=== PATIENT | male | born 1985 | race Caucasian/White ===

== ENCOUNTER 2017-05-18 16:29 | Emergency (ER) | payer SELFPAY ==
[~2017-05-18] VITALS: Ht 180.3 cm; Wt 66.7 kg
[~2017-05-18 16:29] MED LIST: CORTISPORIN-TC10 M1 LEFT EAR; NO HOME MEDS; RISPERDAL2 MG PO
[2017-05-18 17:52] LABS: APPEARANCE CLEAR ((CLEAR)); BILIRUBIN NEGATIVE; BLOOD NEGATIVE; COLOR STRAW ((YELLOW)); GLUCOSE (STRIP) NEGATIVE; KETONES NEGATIVE; LEUKOCYTES NEGATIVE; NITRITE NEGATIVE; PROTEIN (STRIP) NEGATIVE; SPECIFIC GRAVITY 1.004 (1.000-1.030); UCUL ADDED? NO; UROBILINOGEN 0.2 MG/DL (0.2-1.0)
[2017-05-18 18:08] LABS: AMPHETAMINE NEGATIVE (500 ng/mL); BARBITURATES NEGATIVE (200 ng/mL); BENZODIAZEPINES NEGATIVE (150 ng/mL); BUPRENORPHINE NEGATIVE (10 ng/mL); COCAINE NEGATIVE (150 ng/mL); METHADONE NEGATIVE (200 ng/mL); METHAMPHETAMINE NEGATIVE (500 ng/mL); OPIATES (MORPHINE) NEGATIVE (100 ng/mL); OXYCODONE NEGATIVE (100 ng/mL); PHENCYCLIDINE NEGATIVE (25 ng/mL); PROPOXYPHENE NEGATIVE (300 ng/mL); THC CANNABINOIDS PRESUMPTIVE POSITIVE (50 ng/mL); TRICYCLIC ANTIDEPRESSANTS NEGATIVE (300 ng/mL)
[2017-05-18 18:20] LABS: BASOPHIL (%) 0.6 % (0-1); EOSINOPHIL (%) 0.8 % (0-5); EOSINOPHIL COUNT 0.1 K/uL (0-0.3); HEMATOCRIT 36.8 % (38.0-50.0); HEMOGLOBIN 12.4 G/DL (12.5-16.6); IMMATURE GRANULOCYTE (%) 0.2 % (0.0-0.7); LYMPHOCYTE (%) 24.8 % (15-42); LYMPHOCYTE COUNT 1.6 K/uL (1.0-2.8); MCH 28.4 PG (29.0-34.0); MCHC 33.7 G/DL (30.0-36.0); MCV 84.4 FL (86-99); MONOCYTE (%) 10.7 % (3-12); MONOCYTE COUNT 0.7 K/uL (0-0.8); NEUTROPHIL (%) 62.9 % (45-76); NEUTROPHIL COUNT 4.2 K/uL (1.8-6.4); PLATELET COUNT 274 K/uL (156-360); RBC DIS.WIDTH-CV 12.1 % (11.8-14.6); RBC DIS.WIDTH-SD 37.2 % (39-53); RED BLOOD COUNT 4.36 M/uL (4.00-5.50); WHITE BLOOD COUNT 6.6 K/uL (4.1-10.2)
[2017-05-18 18:36] LABS: CHLORIDE 107 mEq/L (99-109)
[2017-05-18 18:37] LABS: SODIUM 140 mEq/L (136-147)
[2017-05-18 18:38] LABS: GLUCOSE 88 mg/dL (70-99)
[2017-05-18 18:41] LABS: SERUM ETHYL ALCOHOL < 10 mg/dL
[2017-05-18 18:42] LABS: CREATININE 0.7 mg/dL (0.6-1.3); GFR ESTIMATE (CALCULATED) > 59 mL/min/ (58.99-99999)
[2017-05-18 18:43] LABS: UREA NITROGEN (BUN) 7 mg/dL (9-23)
[2017-05-18 20:58] VITALS: BP 145/92
== END 2017-05-18 21:01 | disposition home or self-care (01) ==
LOC: EME 16:29
PROVIDERS: Emergency Medicine
DX: F20.9 Schizophrenia, unspecified (principal); T43.596A Underdosing of other antipsychotics and neuroleptics, initial encounter; Z91.14 Patient's other noncompliance with medication regimen; Z04.6 Encounter for general psychiatric examination, requested by authority; F41.9 Anxiety disorder, unspecified; F17.200 Nicotine dependence, unspecified, uncomplicated
CPT/HCPCS: 80048; 81003; 84999; 85025; 90837; G0480

== ENCOUNTER 2017-05-19 14:28 | Emergency (ER) | payer SELFPAY ==
[~2017-05-19] VITALS: Ht 175.3 cm; Wt 70.3 kg
[2017-05-19 15:24] VITALS: BP 130/83
== END 2017-05-19 17:30 | disposition left against medical advice (07) ==
LOC: EME 14:28
DX: S91.302A Unspecified open wound, left foot, initial encounter (principal); S91.301A Unspecified open wound, right foot, initial encounter; Z53.21 Procedure and treatment not carried out due to patient leaving prior to being seen by health care provider
CPT/HCPCS: 99281

== ENCOUNTER 2017-05-27 10:01 | Inpatient (IN) | payer OTHER ==
[~2017-05-27] VITALS: Ht 165.1 cm; Wt 72.3 kg
[2017-05-27 10:38] LABS: BASOPHIL (%) 0.6 % (0-1); EOSINOPHIL (%) 0.7 % (0-5); EOSINOPHIL COUNT 0.1 K/uL (0-0.3); HEMATOCRIT 39.4 % (38.0-50.0); IMMATURE GRANULOCYTE (%) 0.3 % (0.0-0.7); LYMPHOCYTE (%) 15.9 % (15-42); LYMPHOCYTE COUNT 1.1 K/uL (1.0-2.8); MCH 28.6 PG (29.0-34.0); MCV 86.8 FL (86-99); MONOCYTE (%) 7.3 % (3-12); MONOCYTE COUNT 0.5 K/uL (0-0.8); NEUTROPHIL (%) 75.2 % (45-76); NEUTROPHIL COUNT 5.2 K/uL (1.8-6.4); PLATELET COUNT 284 K/uL (156-360); RBC DIS.WIDTH-CV 12.7 % (11.8-14.6); RBC DIS.WIDTH-SD 39.9 % (39-53); RED BLOOD COUNT 4.54 M/uL (4.00-5.50); WHITE BLOOD COUNT 6.9 K/uL (4.1-10.2)
[2017-05-27 10:49] LABS: CHLORIDE 106 mEq/L (99-109); POTASSIUM 3.7 mEq/L (3.7-5.4); SODIUM 140 mEq/L (136-147)
[2017-05-27 10:51] LABS: GLUCOSE 103 mg/dL (70-99)
[2017-05-27 10:54] LABS: SERUM ETHYL ALCOHOL < 10 mg/dL
[2017-05-27 10:55] LABS: CREATININE 0.9 mg/dL (0.6-1.3); GFR ESTIMATE (CALCULATED) > 59 mL/min/ (58.99-99999)
[2017-05-27 10:56] LABS: UREA NITROGEN (BUN) 12 mg/dL (9-23)
[2017-05-27] MEDS ORDERED: CATAPRES0.2 MG PO (11:38)
[2017-05-27 12:07] VITALS: BP 147/78
[2017-05-27 15:40] VITALS: BP 110/58
[2017-05-28 07:26] VITALS: BP 101/53
[2017-05-28 15:39] VITALS: BP 144/82
[2017-05-29 07:54] VITALS: BP 94/55
[2017-05-29 15:42] VITALS: BP 97/53
[2017-05-30 08:23] VITALS: BP 117/60
[2017-05-30 15:48] VITALS: BP 98/55
[2017-05-31 09:29] VITALS: BP 101/52
[2017-05-31 15:11] VITALS: BP 142/67
[2017-06-01 08:06] VITALS: BP 109/51
[2017-06-01 14:58] VITALS: BP 113/62
[2017-06-02 07:54] VITALS: BP 105/56
[2017-06-02 16:02] VITALS: BP 134/78
[2017-06-03 07:37] VITALS: BP 89/55
[2017-06-03 15:22] VITALS: BP 129/75
[2017-06-04 07:48] VITALS: BP 129/68
[2017-06-04 15:34] VITALS: BP 131/72
[2017-06-05 07:38] VITALS: BP 112/67
[2017-06-05 15:34] VITALS: BP 124/80
[2017-06-06 07:35] VITALS: BP 123/67
[2017-06-06 15:26] VITALS: BP 106/60
[2017-06-07 07:31] VITALS: BP 119/62
[2017-06-07 15:30] VITALS: BP 84/45
[2017-06-08 07:38] VITALS: BP 114/63
[2017-06-08 15:34] VITALS: BP 123/72
[2017-06-09 07:52] VITALS: BP 115/57
[2017-06-09] MEDS ORDERED: RISPERDAL4 MG PO ×2 (09:14→09:23)
[2017-06-09] MEDS ORDERED: DEPAKOTE ER250 MG PO (09:15)
== END 2017-06-09 11:06 | disposition home or self-care (01) | DRG 885 ==
LOC: EME 10:01 → EDOF 11:15 → 1WEST 11:15 → ENRESERV 12:01 → 1WEST 12:02
PROVIDERS: Emergency Medicine
DX: F20.1 Disorganized schizophrenia (principal); F32.9 Major depressive disorder, single episode, unspecified; F17.200 Nicotine dependence, unspecified, uncomplicated; Z81.8 Family history of other mental and behavioral disorders; Z91.14 Patient's other noncompliance with medication regimen; F90.9 Attention-deficit hyperactivity disorder, unspecified type; F42.9 Obsessive-compulsive disorder, unspecified
CPT/HCPCS: 80048; 80164; 80306 90; 81003; 85025; 90837; 97150 GO; 97165 GO; 99281; 99284; G0480; J2794; Q0177

== ENCOUNTER 2017-06-12 21:48 | Inpatient (IN) | payer OTHER ==
[~2017-06-12] VITALS: Ht 177.8 cm; Wt 75.5 kg
[~2017-06-12 21:48] MED LIST changes: +CATAPRES0.2 MG PO; +DEPAKOTE ER250 MG PO; +RISPERDAL4 MG PO
[2017-06-13 00:07] LABS: HEMATOCRIT 37.3 % (38.0-50.0); HEMOGLOBIN 12.5 G/DL (12.5-16.6); MCH 29.1 PG (29.0-34.0); MCHC 33.5 G/DL (30.0-36.0); MCV 86.7 FL (86-99); PLATELET COUNT 218 K/uL (156-360); RBC DIS.WIDTH-CV 13.3 % (11.8-14.6); RBC DIS.WIDTH-SD 41.9 % (39-53); WHITE BLOOD COUNT 8.3 K/uL (4.1-10.2)
[2017-06-13 00:15] LABS: ALBUMIN 4.3 g/dL (3.2-4.8); CHLORIDE 105 mEq/L (99-109); POTASSIUM 3.8 mEq/L (3.7-5.4); SODIUM 138 mEq/L (136-147)
[2017-06-13 00:17] LABS: GLUCOSE 79 mg/dL (70-99)
[2017-06-13 00:19] LABS: TOTAL BILIRUBIN 0.6 mg/dL (0.0-1.0)
[2017-06-13 00:20] LABS: SERUM ETHYL ALCOHOL < 10 mg/dL
[2017-06-13 00:21] LABS: ALKALINE PHOSPHATASE 58 IU/L (3-129); CREATININE 0.8 mg/dL (0.6-1.3); GFR ESTIMATE (CALCULATED) > 59 mL/min/ (58.99-99999)
[2017-06-13 00:22] LABS: UREA NITROGEN (BUN) 18 mg/dL (9-23)
[2017-06-13 00:23] LABS: AST (GOT) 21 IU/L (2-34)
[2017-06-13 00:24] LABS: ALT (GPT) 13 IU/L (3-49)
[2017-06-13 01:59] VITALS: BP 112/58
[2017-06-13 09:43] VITALS: BP 106/51
[2017-06-13 15:42] VITALS: BP 122/70
[2017-06-14 08:09] VITALS: BP 110/68
[2017-06-14 15:50] VITALS: BP 122/65
[2017-06-15 07:39] VITALS: BP 123/71
[2017-06-15 13:19] LABS: BASOPHIL (%) 0.8 % (0-1); EOSINOPHIL (%) 1.7 % (0-5); EOSINOPHIL COUNT 0.1 K/uL (0-0.3); HEMATOCRIT 32.8 % (38.0-50.0); HEMOGLOBIN 10.6 G/DL (12.5-16.6); IMMATURE GRANULOCYTE (%) 0.2 % (0.0-0.7); LYMPHOCYTE (%) 34.3 % (15-42); LYMPHOCYTE COUNT 1.6 K/uL (1.0-2.8); MCH 28.3 PG (29.0-34.0); MCHC 32.3 G/DL (30.0-36.0); MCV 87.5 FL (86-99); MONOCYTE (%) 10.5 % (3-12); MONOCYTE COUNT 0.5 K/uL (0-0.8); NEUTROPHIL (%) 52.5 % (45-76); NEUTROPHIL COUNT 2.5 K/uL (1.8-6.4); PLATELET COUNT 200 K/uL (156-360); RBC DIS.WIDTH-CV 13.1 % (11.8-14.6); RBC DIS.WIDTH-SD 42.5 % (39-53); RED BLOOD COUNT 3.75 M/uL (4.00-5.50); WHITE BLOOD COUNT 4.8 K/uL (4.1-10.2)
[2017-06-15 15:41] VITALS: BP 123/75
[2017-06-16 09:59] VITALS: BP 124/80
[2017-06-16 16:03] VITALS: BP 104/53
[2017-06-17 07:39] VITALS: BP 109/67
[2017-06-17 15:16] VITALS: BP 111/53
[2017-06-18 08:24] VITALS: BP 111/68
[2017-06-18 15:40] VITALS: BP 117/67
[2017-06-19 08:11] VITALS: BP 102/59
[2017-06-19 16:21] VITALS: BP 124/65
[2017-06-20 07:47] VITALS: BP 100/51
[2017-06-20 15:45] VITALS: BP 97/54
[2017-06-20 18:55] VITALS: BP 105/70
[2017-06-21 07:33] VITALS: BP 119/70
[2017-06-21 15:37] VITALS: BP 113/54
[2017-06-22 07:31] VITALS: BP 91/55
[2017-06-22 15:38] VITALS: BP 100/55
[2017-06-23 07:48] VITALS: BP 107/58
[2017-06-23 15:55] VITALS: BP 134/61
[2017-06-24 07:29] VITALS: BP 103/54
[2017-06-24 15:06] VITALS: BP 94/54
[2017-06-25 00:07] VITALS: BP 136/86
[2017-06-25 07:43] VITALS: BP 147/79
[2017-06-25 15:21] VITALS: BP 132/75
[2017-06-26 07:59] VITALS: BP 109/76
[2017-06-26 15:38] VITALS: BP 104/56
[2017-06-27 07:43] VITALS: BP 107/66
[2017-06-27 16:10] VITALS: BP 115/71
[2017-06-28 08:00] VITALS: BP 84/51
[2017-06-28 15:50] VITALS: BP 107/56
[2017-06-29 08:00] VITALS: BP 113/60
[2017-06-29 15:48] VITALS: BP 133/72
[2017-06-30 07:33] VITALS: BP 152/65
[2017-06-30 16:10] VITALS: BP 122/68
[2017-07-01 07:51] VITALS: BP 96/53
[2017-07-01 15:39] VITALS: BP 106/57
[2017-07-02 07:24] VITALS: BP 105/58
[2017-07-02 15:51] VITALS: BP 103/57
[2017-07-03 08:03] VITALS: BP 93/44
[2017-07-03 15:50] VITALS: BP 122/66
[2017-07-04 07:53] VITALS: BP 103/53
[2017-07-04 15:36] VITALS: BP 131/68
[2017-07-05 07:53] VITALS: BP 106/58
[2017-07-05 15:31] VITALS: BP 132/68
[2017-07-06 07:39] VITALS: BP 102/51
[2017-07-06 15:30] VITALS: BP 106/53
[2017-07-07 08:08] VITALS: BP 109/60
[2017-07-07] MEDS ORDERED: TRAZODONE HCL50 MG PO (09:20)
[2017-07-07] MEDS ORDERED: DIVALPROEX SOD500 M1 PO (09:20)
[2017-07-07] MEDS ORDERED: ZIPRASIDONE HCL80 MG PO (09:20)
[2017-07-07 16:11] VITALS: BP 127/62
== END 2017-07-07 16:54 | disposition home or self-care (01) | DRG 885 ==
LOC: EME 21:48 → 1WEST 06-13 01:00 → EDOF 06-13 01:00 → ENRESERV 06-13 01:35 → 1WEST 06-13 01:36
PROVIDERS: Emergency Medicine; Psychiatry & Neurology Psychiatry
DX: F20.0 Paranoid schizophrenia (principal); R41.83 Borderline intellectual functioning; F17.200 Nicotine dependence, unspecified, uncomplicated; F42.9 Obsessive-compulsive disorder, unspecified; R11.10 Vomiting, unspecified; Z91.14 Patient's other noncompliance with medication regimen
CPT/HCPCS: 80053; 80164; 80306 90; 85025; 85027; 87493; 90839; 97150 GO; 97166 GO; 99281; 99285; G0480; J2794; Q0177

== ENCOUNTER 2017-07-12 01:20 | Emergency (ER) | payer OTHER ==
[~2017-07-12] VITALS: Ht 172.7 cm; Wt 74.9 kg
[~2017-07-12 01:20] MED LIST changes: +DIVALPROEX SOD500 M1 PO; +TRAZODONE HCL50 MG PO; +ZIPRASIDONE HCL80 MG PO
[2017-07-12 01:41] LABS: BASOPHIL (%) 0.7 % (0-1); BASOPHIL COUNT 0.1 K/uL (0-0.1); EOSINOPHIL (%) 1.5 % (0-5); EOSINOPHIL COUNT 0.1 K/uL (0-0.3); HEMATOCRIT 35.1 % (38.0-50.0); HEMOGLOBIN 11.6 G/DL (12.5-16.6); IMMATURE GRANULOCYTE (%) 0.3 % (0.0-0.7); LYMPHOCYTE (%) 30.9 % (15-42); LYMPHOCYTE COUNT 2.2 K/uL (1.0-2.8); MCH 28.9 PG (29.0-34.0); MCV 87.5 FL (86-99); MONOCYTE (%) 8.7 % (3-12); MONOCYTE COUNT 0.6 K/uL (0-0.8); NEUTROPHIL (%) 57.9 % (45-76); NEUTROPHIL COUNT 4.2 K/uL (1.8-6.4); PLATELET COUNT 169 K/uL (156-360); RBC DIS.WIDTH-CV 13.1 % (11.8-14.6); RBC DIS.WIDTH-SD 41.9 % (39-53); RED BLOOD COUNT 4.01 M/uL (4.00-5.50); WHITE BLOOD COUNT 7.2 K/uL (4.1-10.2)
[2017-07-12 01:53] LABS: ALBUMIN 3.9 g/dL (3.2-4.8); CHLORIDE 107 mEq/L (99-109); POTASSIUM 3.4 mEq/L (3.7-5.4); SODIUM 140 mEq/L (136-147)
[2017-07-12 01:55] LABS: GLUCOSE 93 mg/dL (70-99); TOTAL PROTEIN 6.5 g/dL (6.4-8.3)
[2017-07-12 01:57] LABS: TOTAL BILIRUBIN 0.3 mg/dL (0.0-1.0)
[2017-07-12 01:58] LABS: SERUM ETHYL ALCOHOL < 10 mg/dL
[2017-07-12 01:59] LABS: CREATININE 0.7 mg/dL (0.6-1.3); GFR ESTIMATE (CALCULATED) > 59 mL/min/ (58.99-99999)
[2017-07-12 02:00] LABS: ALKALINE PHOSPHATASE 50 IU/L (3-129)
[2017-07-12 02:01] LABS: AST (GOT) 19 IU/L (2-34); UREA NITROGEN (BUN) 10 mg/dL (9-23)
[2017-07-12 02:02] LABS: SALICYLATE < 5.0 MG/DL (15-30)
[2017-07-12 02:03] LABS: ACETAMINOPHEN (TYLENOL) < 10 mcg/mL (10-30); ALT (GPT) 14 IU/L (3-49)
[2017-07-12 02:04] LABS: CREATINE KINASE 276 IU/L (1-294); LIPASE 15 U/L (1.0-51.0); TOTAL CK 276 IU/L (1-294)
[2017-07-12 02:05] LABS: TROP-I INTERPRETATION NEGATIVE; TROPONIN-I < 0.01 ng/mL (0.0-0.30)
[2017-07-12 02:11] LABS: CK-MB 1.6 ng/mL (0.0-4.9); CKMB RELATIVE INDEX 0.6 (0.0-3.9)
[2017-07-12 05:24] LABS: AMPHETAMINE NEGATIVE (500 ng/mL); BARBITURATES NEGATIVE (200 ng/mL); BENZODIAZEPINES NEGATIVE (150 ng/mL); BUPRENORPHINE NEGATIVE (10 ng/mL); COCAINE NEGATIVE (150 ng/mL); METHADONE NEGATIVE (200 ng/mL); METHAMPHETAMINE NEGATIVE (500 ng/mL); OPIATES (MORPHINE) NEGATIVE (100 ng/mL); OXYCODONE NEGATIVE (100 ng/mL); PHENCYCLIDINE NEGATIVE (25 ng/mL); PROPOXYPHENE NEGATIVE (300 ng/mL); THC CANNABINOIDS NEGATIVE (50 ng/mL); TRICYCLIC ANTIDEPRESSANTS NEGATIVE (300 ng/mL)
[2017-07-12 05:34] LABS: VALPROIC ACID (DEPAKOTE) 74.6 MCG/ML (50-100)
[2017-07-12 06:21] VITALS: BP 100/72
== END 2017-07-12 06:30 | disposition home or self-care (01) ==
LOC: EME → EDBD 01:20 → EME 01:20
PROVIDERS: Emergency Medicine
DX: R41.0 Disorientation, unspecified (principal); J02.9 Acute pharyngitis, unspecified; R93.0 Abnormal findings on diagnostic imaging of skull and head, not elsewhere classified; F20.9 Schizophrenia, unspecified; F17.200 Nicotine dependence, unspecified, uncomplicated
CPT/HCPCS: 70450; 80053; 80164; 82550; 82553; 83605; 83690; 84484; 85025; 87651 90; 93005; 99281; 99284; G0480; J2310; J7030

== ENCOUNTER 2017-08-19 05:24 | Inpatient (IN) | payer OTHER ==
[~2017-08-19] VITALS: Ht 170.2 cm; Wt 75.0 kg
[2017-08-19 06:53] LABS: HEMATOCRIT 37.8 % (38.0-50.0); HEMOGLOBIN 13.1 G/DL (12.5-16.6); MCH 29.5 PG (29.0-34.0); MCHC 34.7 G/DL (30.0-36.0); MCV 85.1 FL (86-99); PLATELET COUNT 222 K/uL (156-360); RBC DIS.WIDTH-CV 12.1 % (11.8-14.6); RBC DIS.WIDTH-SD 37.4 % (39-53); RED BLOOD COUNT 4.44 M/uL (4.00-5.50); WHITE BLOOD COUNT 6.8 K/uL (4.1-10.2)
[2017-08-19 07:28] LABS: CHLORIDE 103 MEQ/L (99-109); CREATININE 0.9 MG/DL (0.6-1.3); GFR ESTIMATE (CALCULATED) > 59 mL/min/ (58.99-99999); GLUCOSE 132 mg/dL (70-99); SODIUM 135 MEQ/L (136-147); UREA NITROGEN (BUN) 16 mg/dL (9-23)
[2017-08-19 07:32] LABS: SERUM ETHYL ALCOHOL < 10 mg/dL
[2017-08-19 10:53] VITALS: BP 112/72
[2017-08-19 10:55] VITALS: BP 112/72
[2017-08-19 15:41] VITALS: BP 114/55
[2017-08-20 07:34] VITALS: BP 101/57
[2017-08-20 15:46] VITALS: BP 120/60
[2017-08-21 07:43] VITALS: BP 144/88
[2017-08-21 15:39] VITALS: BP 101/56
[2017-08-22 08:14] VITALS: BP 109/58
[2017-08-22 15:45] VITALS: BP 122/58
[2017-08-23 09:28] VITALS: BP 107/52
[2017-08-23 16:00] VITALS: BP 111/56
[2017-08-24 08:32] VITALS: BP 87/51
[2017-08-24 16:00] VITALS: BP 117/58
[2017-08-25 07:51] VITALS: BP 121/58
[2017-08-25] MEDS ORDERED: DIVALPROEX SOD500 M1 PO (10:52)
[2017-08-25] MEDS ORDERED: TRAZODONE HCL50 MG PO (10:52)
[2017-08-25] MEDS ORDERED: RISPERDAL2 MG PO (10:52)
== END 2017-08-25 11:32 | disposition home or self-care (01) | DRG 885 ==
LOC: EME 05:24 → EDOF 08:51 → 1WEST 08:51 → EDOF 09:23 → ENRESERV 10:46 → 1WEST 10:46
PROVIDERS: Emergency Medicine
DX: F20.0 Paranoid schizophrenia (principal); F42.9 Obsessive-compulsive disorder, unspecified; F16.10 Hallucinogen abuse, uncomplicated; Z59.0 Homelessness; F17.200 Nicotine dependence, unspecified, uncomplicated; Z91.14 Patient's other noncompliance with medication regimen; Z81.8 Family history of other mental and behavioral disorders
CPT/HCPCS: 80048; 80306 90; 81003; 85027; 90839; 97167 GO; 99281; 99285; G0480; J1630; J2794; J3230; Q0177

== ENCOUNTER 2017-10-27 14:57 | Inpatient (IN) | payer OTHER ==
[~2017-10-27] VITALS: Ht 177.8 cm; Wt 76.7 kg
[2017-10-27 17:04] LABS: HEMATOCRIT 39.6 % (38.0-50.0); HEMOGLOBIN 13.6 G/DL (12.5-16.6); MCH 28.8 PG (29.0-34.0); MCHC 34.3 G/DL (30.0-36.0); MCV 83.9 FL (86-99); PLATELET COUNT 229 K/uL (156-360); RBC DIS.WIDTH-CV 12.6 % (11.8-14.6); RBC DIS.WIDTH-SD 38.5 % (39-53); RED BLOOD COUNT 4.72 M/uL (4.00-5.50); WHITE BLOOD COUNT 6.7 K/uL (4.1-10.2)
[2017-10-27 17:15] LABS: CHLORIDE 105 mEq/L (99-109); POTASSIUM 3.8 mEq/L (3.7-5.4); SODIUM 138 mEq/L (136-147)
[2017-10-27 17:17] LABS: GLUCOSE 90 mg/dL (70-99)
[2017-10-27 17:19] LABS: AMPHETAMINE NEGATIVE (500 ng/mL); BARBITURATES NEGATIVE (200 ng/mL); BENZODIAZEPINES NEGATIVE (150 ng/mL); BUPRENORPHINE NEGATIVE (10 ng/mL); COCAINE NEGATIVE (150 ng/mL); METHADONE NEGATIVE (200 ng/mL); METHAMPHETAMINE NEGATIVE (500 ng/mL); OPIATES (MORPHINE) NEGATIVE (100 ng/mL); OXYCODONE NEGATIVE (100 ng/mL); PHENCYCLIDINE NEGATIVE (25 ng/mL); PROPOXYPHENE NEGATIVE (300 ng/mL); THC CANNABINOIDS PRESUMPTIVE POSITIVE (50 ng/mL); TRICYCLIC ANTIDEPRESSANTS NEGATIVE (300 ng/mL)
[2017-10-27 17:20] LABS: SERUM ETHYL ALCOHOL < 10 mg/dL
[2017-10-27 17:21] LABS: CREATININE 0.8 mg/dL (0.6-1.3); GFR ESTIMATE (CALCULATED) > 59 mL/min/ (58.99-99999)
[2017-10-27 17:22] LABS: UREA NITROGEN (BUN) 12 mg/dL (9-23)
[2017-10-27] MEDS ORDERED: BENZTROPINE MESY1 MG PO (19:47)
[2017-10-27 22:49] VITALS: BP 110/64
[2017-10-28 08:12] VITALS: BP 100/52
[2017-10-28 16:28] VITALS: BP 113/56
[2017-10-29 07:51] VITALS: BP 97/52
[2017-10-29 15:44] VITALS: BP 96/50
[2017-10-30 07:36] VITALS: BP 98/54
[2017-10-30 14:55] VITALS: BP 100/51
[2017-10-31 08:46] VITALS: BP 98/56
[2017-10-31 17:04] VITALS: BP 102/55
[2017-11-01 08:38] VITALS: BP 109/61
[2017-11-01 16:10] VITALS: BP 110/69
[2017-11-02 08:51] VITALS: BP 107/57
[2017-11-02 16:00] VITALS: BP 105/55
[2017-11-03 07:42] VITALS: BP 106/56
[2017-11-03 16:30] VITALS: BP 114/74
[2017-11-04 08:02] VITALS: BP 90/54
[2017-11-04 16:13] VITALS: BP 115/71
[2017-11-05 08:08] VITALS: BP 91/55
[2017-11-05 16:19] VITALS: BP 96/52
[2017-11-06 08:25] VITALS: BP 105/57
[2017-11-06 17:01] VITALS: BP 100/57
[2017-11-07 07:47] VITALS: BP 110/58
[2017-11-07 16:33] VITALS: BP 113/59
[2017-11-08 07:48] VITALS: BP 104/60
[2017-11-08 15:32] VITALS: BP 108/58
[2017-11-09 07:54] VITALS: BP 98/56
[2017-11-09 15:37] VITALS: BP 111/54
[2017-11-10 07:55] VITALS: BP 113/56
[2017-11-10] MEDS ORDERED: TRAZODONE HCL50 MG PO (10:12)
[2017-11-10] MEDS ORDERED: RISPERDAL2 MG PO (10:12)
[2017-11-10] MEDS ORDERED: DIVALPROEX SOD500 M1 PO (10:12)
[2017-11-10] MEDS ORDERED: OLANZAPINE10 MG PO (10:12)
== END 2017-11-10 11:27 | disposition home or self-care (01) | DRG 885 ==
LOC: EME 14:57 → 1WEST 17:56 → EDOF 17:56 → 1WEST 17:56 → ENRESERV 22:29 → 1WEST 11-10 11:27
PROVIDERS: Emergency Medicine
DX: F20.0 Paranoid schizophrenia (principal); R45.851 Suicidal ideations; F42.9 Obsessive-compulsive disorder, unspecified; F12.10 Cannabis abuse, uncomplicated; F16.10 Hallucinogen abuse, uncomplicated; Z91.14 Patient's other noncompliance with medication regimen; F17.210 Nicotine dependence, cigarettes, uncomplicated; F31.9 Bipolar disorder, unspecified; Z59.0 Homelessness; Z81.8 Family history of other mental and behavioral disorders
CPT/HCPCS: 80048; 80164; 84999; 85027; 90839; 97150 GO; 97166 GO; 99281; 99285; G0480

== ENCOUNTER 2017-11-16 21:47 | Inpatient (IN) | payer OTHER ==
[~2017-11-16] VITALS: Ht 170.2 cm; Wt 72.7 kg
[~2017-11-16 21:47] MED LIST changes: +BENZTROPINE MESY1 MG PO; +OLANZAPINE10 MG PO
[2017-11-16 23:14] LABS: BASOPHIL (%) 0.5 % (0-1); BASOPHIL COUNT 0.1 K/uL (0-0.1); EOSINOPHIL (%) 0.3 % (0-5); HEMATOCRIT 34.3 % (38.0-50.0); IMMATURE GRANULOCYTE (%) 0.5 % (0.0-0.7); LYMPHOCYTE (%) 12.2 % (15-42); LYMPHOCYTE COUNT 1.6 K/uL (1.0-2.8); MCH 28.9 PG (29.0-34.0); MCV 82.7 FL (86-99); MONOCYTE (%) 11.9 % (3-12); MONOCYTE COUNT 1.6 K/uL (0-0.8); NEUTROPHIL (%) 74.6 % (45-76); NEUTROPHIL COUNT 9.9 K/uL (1.8-6.4); PLATELET COUNT 254 K/uL (156-360); RBC DIS.WIDTH-CV 12.6 % (11.8-14.6); RBC DIS.WIDTH-SD 37.8 % (39-53); RED BLOOD COUNT 4.15 M/uL (4.00-5.50); WHITE BLOOD COUNT 13.2 K/uL (4.1-10.2)
[2017-11-16 23:23] LABS: CHLORIDE 106 mEq/L (99-109); POTASSIUM 3.6 mEq/L (3.7-5.4); SODIUM 137 mEq/L (136-147)
[2017-11-16 23:25] LABS: GLUCOSE 81 mg/dL (70-99)
[2017-11-16 23:28] LABS: SERUM ETHYL ALCOHOL < 10 mg/dL
[2017-11-16 23:29] LABS: CREATININE 0.9 mg/dL (0.6-1.3); GFR ESTIMATE (CALCULATED) > 59 mL/min/ (58.99-99999)
[2017-11-16 23:30] LABS: UREA NITROGEN (BUN) 11 mg/dL (9-23)
[2017-11-17 10:16] LABS: AMPHETAMINE NEGATIVE (500 ng/mL); BARBITURATES NEGATIVE (200 ng/mL); BENZODIAZEPINES PRESUMPTIVE POSITIVE (150 ng/mL); COCAINE NEGATIVE (150 ng/mL); METHADONE NEGATIVE (200 ng/mL); METHAMPHETAMINE NEGATIVE (500 ng/mL); OPIATES (MORPHINE) NEGATIVE (100 ng/mL); OXYCODONE NEGATIVE (100 ng/mL); PHENCYCLIDINE NEGATIVE (25 ng/mL); THC CANNABINOIDS PRESUMPTIVE POSITIVE (50 ng/mL); TRICYCLIC ANTIDEPRESSANTS NEGATIVE (300 ng/mL)
[2017-11-17 10:17] LABS: BUPRENORPHINE NEGATIVE (10 ng/mL); PROPOXYPHENE NEGATIVE (300 ng/mL)
[2017-11-17 10:53] LABS: BENZODIAZEPINES, URINE SCREEN Negative (200 ng/mL)
[2017-11-17 13:13] VITALS: BP 119/65
[2017-11-17 13:18] VITALS: BP 119/65
[2017-11-17] MEDS ORDERED: ZYPREXA10 MG PO (13:36)
[2017-11-17] MEDS ORDERED: DEPAKOTE ER500 MG PO (13:37)
[2017-11-17] MEDS ORDERED: TRAZODONE HCL50 MG PO (13:38)
[2017-11-17] MEDS ORDERED: RISPERDAL2 MG PO (13:38)
[2017-11-17 16:53] VITALS: BP 107/66
[2017-11-18 07:47] VITALS: BP 86/54
[2017-11-18 16:13] VITALS: BP 88/52
[2017-11-18 19:22] VITALS: BP 97/53
[2017-11-19 07:52] VITALS: BP 99/57
== END 2017-11-19 12:55 | DRG 885 ==
LOC: EME → EDBD 21:47 → EME 21:47 → EDOF 11-17 11:14 → 1WEST 11-17 11:14 → ENRESERV 11-17 13:04 → 1WEST 11-19 12:55
PROVIDERS: Emergency Medicine
DX: F20.9 Schizophrenia, unspecified (principal); F42.9 Obsessive-compulsive disorder, unspecified; T78.3XXA Angioneurotic edema, initial encounter; I95.9 Hypotension, unspecified; B35.3 Tinea pedis; R41.83 Borderline intellectual functioning; F17.200 Nicotine dependence, unspecified, uncomplicated; Z81.8 Family history of other mental and behavioral disorders; Z91.14 Patient's other noncompliance with medication regimen
CPT/HCPCS: 80048; 84999; 85025; 90837; 99281; 99285; G0480; J1630; J2060; J7512

== ENCOUNTER 2017-11-19 11:29 | Inpatient (IN) | payer OTHER ==
[~2017-11-19] VITALS: Ht 180.3 cm; Wt 69.0 kg
[~2017-11-19 11:29] MED LIST changes: +DEPAKOTE ER500 MG PO; +ZYPREXA10 MG PO
[2017-11-19 13:21] VITALS: BP 115/67
[2017-11-19 13:51] LABS: BASOPHIL (%) 0.4 % (0-1); EOSINOPHIL (%) 0.3 % (0-5); HEMATOCRIT 35.6 % (38.0-50.0); HEMOGLOBIN 12.1 G/DL (12.5-16.6); IMMATURE GRANULOCYTE (%) 0.4 % (0.0-0.7); LYMPHOCYTE (%) 14.6 % (15-42); LYMPHOCYTE COUNT 1.4 K/uL (1.0-2.8); MCH 28.8 PG (29.0-34.0); MCV 84.8 FL (86-99); MONOCYTE (%) 10.5 % (3-12); NEUTROPHIL (%) 73.8 % (45-76); NEUTROPHIL COUNT 7.1 K/uL (1.8-6.4); PLATELET COUNT 309 K/uL (156-360); RBC DIS.WIDTH-CV 13.2 % (11.8-14.6); WHITE BLOOD COUNT 9.6 K/uL (4.1-10.2)
[2017-11-19 13:58] LABS: CHLORIDE 108 mEq/L (99-109); POTASSIUM 4.3 mEq/L (3.7-5.4); SODIUM 140 mEq/L (136-147)
[2017-11-19 14:04] LABS: CREATININE 0.8 mg/dL (0.6-1.3); GFR ESTIMATE (CALCULATED) > 59 mL/min/ (58.99-99999)
[2017-11-19 14:05] LABS: UREA NITROGEN (BUN) 12 mg/dL (9-23)
[2017-11-19 14:10] LABS: GLUCOSE 128 mg/dL (70-99)
[2017-11-19 19:25] VITALS: BP 119/71
[2017-11-19 23:56] VITALS: BP 105/60
[2017-11-20 03:55] VITALS: BP 95/62
[2017-11-20 07:55] VITALS: BP 118/63
[2017-11-20 11:41] VITALS: BP 109/56
[2017-11-20 15:53] VITALS: BP 119/67
[2017-11-20 19:41] VITALS: BP 121/76
[2017-11-20 23:58] VITALS: BP 116/55
[2017-11-21 06:56] VITALS: BP 115/60
[2017-11-21] MEDS ORDERED: PEPCID20 MG PO (11:09)
[2017-11-21] MEDS ORDERED: BENADRYL25 MG PO (11:09)
[2017-11-21] MEDS ORDERED: PREDNISONE10 MG PO (11:09)
[2017-11-21 15:43] VITALS: BP 121/62
== END 2017-11-21 18:25 | DRG 916 ==
LOC: 5SOUTH 11:29 → 5EAST 11:29 → ENRESERV 11:30 → 5SOUTH 13:04
PROVIDERS: Student in an Organized Health Care Education/Training Program
DX: T78.3XXA Angioneurotic edema, initial encounter (principal); F42.9 Obsessive-compulsive disorder, unspecified; F25.9 Schizoaffective disorder, unspecified; F12.90 Cannabis use, unspecified, uncomplicated; S80.829A Blister (nonthermal), unspecified lower leg, initial encounter; Z81.8 Family history of other mental and behavioral disorders; I95.9 Hypotension, unspecified; Y93.89 Activity, other specified; Y92.238 Other place in hospital as the place of occurrence of the external cause; R47.01 Aphasia; Z79.899 Other long term (current) drug therapy
CPT/HCPCS: 80048; 83605; 85025; 86850; 86900; 86901; 87040; J1644; J2543; J2930; J3370; J7030; J7050; S0028

== ENCOUNTER 2017-11-21 17:45 | Inpatient (IN) | payer OTHER ==
[~2017-11-21 17:45] MED LIST changes: +BENADRYL25 MG PO; +PEPCID20 MG PO; +PREDNISONE10 MG PO
[2017-11-21 19:11] VITALS: BP 134/72
[2017-11-22 07:59] VITALS: BP 127/75
[2017-11-22 16:55] VITALS: BP 148/87
[2017-11-23 07:35] VITALS: BP 118/74
[2017-11-23 15:16] VITALS: BP 125/72
[2017-11-24 07:30] VITALS: BP 105/65
[2017-11-24 16:00] VITALS: BP 125/60
[2017-11-25 07:39] VITALS: BP 115/66
[2017-11-26 07:43] VITALS: BP 104/51
[2017-11-26 16:15] VITALS: BP 122/75
[2017-11-27 08:02] VITALS: BP 112/63
[2017-11-27 16:21] VITALS: BP 138/77
[2017-11-28 07:42] VITALS: BP 107/60
[2017-11-28 16:21] VITALS: BP 123/64
[2017-11-29 07:50] VITALS: BP 105/51
[2017-11-29 16:28] VITALS: BP 145/54
[2017-11-30 07:53] VITALS: BP 106/60
[2017-11-30 16:12] VITALS: BP 122/71
[2017-12-01 07:46] VITALS: BP 107/57
[2017-12-01 16:52] VITALS: BP 107/55
[2017-12-02 08:00] VITALS: BP 101/52
[2017-12-02 16:07] VITALS: BP 119/67
[2017-12-03 08:01] VITALS: BP 110/56
[2017-12-03] MEDS ORDERED: RISPERDAL2 MG PO (10:02)
[2017-12-03] MEDS ORDERED: TRAZODONE HCL50 MG PO (10:02)
[2017-12-03] MEDS ORDERED: BENZTROPINE MESY1 MG PO (10:02)
[2017-12-03] MEDS ORDERED: RISPERDAL37.5 MG/2 IM (10:02)
== END 2017-12-03 10:35 | disposition home or self-care (01) | DRG 885 ==
LOC: 1WEST 17:45 → ENRESERV 17:47 → 1WEST 18:53
DX: F20.9 Schizophrenia, unspecified (principal); F60.5 Obsessive-compulsive personality disorder; T78.3XXA Angioneurotic edema, initial encounter; Z59.0 Homelessness; Z81.8 Family history of other mental and behavioral disorders; R00.0 Tachycardia, unspecified; T38.0X5A Adverse effect of glucocorticoids and synthetic analogues, initial encounter
CPT/HCPCS: 97150 GO; 97166 GO; J2794; J7512; Q0177